=== PATIENT | female | born 1985 | race Caucasian/White ===

== ENCOUNTER 2021-04-17 22:59 | Emergency (ER) | payer SELFPAY ==
[~2021-04-17] VITALS: Ht 162.6 cm; Wt 95.0 kg
[2021-04-17] MEDS ORDERED: FAMOTIDINE 20 MG/2 ML VIAL IVP ONE (23:30)
[2021-04-17] MEDS ORDERED: diphenhydrAMINE 50 MG/ML VIAL IV ONE (23:30)
[2021-04-17] MEDS ORDERED: methylPREDNISolone SOD SUCC PF 125 MG/2 ML VIAL. IV ONE (23:30)
[2021-04-17] MEDS ORDERED: IV NORMAL SALINE 1000ML BAG 1,000 ML IV SCH (23:30)
--- NOTE | 2021-04-17 23:50 | PHYS DOC ---
General Adult EDM: Chief Complaint: ALLERGIC REACTION HPI: HPI: Patient is a 35-year-old female who presents to the emergency department today for an allergic reaction. Patient reports that she was upstairs working on the floor in the hospital when a friend brought out shrimp and she started to feel itchy and felt like her throat was swelling. This occurred 1 hour prior to arrival. Patient reports prior to checking in she did use her EpiPen on her. She reports that her throat swelling has improved but she still feels short of breath and her neck feels itchy. Patient denies fevers, nausea, vomiting. Review of Systems: Review of Systems: Constitutional: negative unless reported in HPI Eyes: negative unless reported in HPI HENT: negative unless reported in HPI Respiratory: negative unless reported in HPI Cardiovascular: negative unless reported in HPI GI: negative unless reported in HPI : negative unless reported in HPI Musculoskeletal: negative unless reported in HPI Integument: negative unless reported in HPI Neurologic: negative unless reported in HPI Endocrine: negative unless reported in HPI Lymphatic: negative unless reported in HPI Psychiatric: negative unless reported in HPI Heart Score: C/O Chest Pain: N/A Risk Factors: Risk Factors: DM, Current or recent (<one month) smoker, HTN, HLP, family history of CAD, obesity. Risk Scores: Score 0 - 3: 2.5% MACE over next 6 weeks - Discharge Home Score 4 - 6: 20.3% MACE over next 6 weeks - Admit for Clinical Observation Score 7 - 10: 72.7% MACE over next 6 weeks - Early Invasive Strategies Current Medications: Current Medications Medications (Trade) Dose Ordered Sig/Devan Start Time Stop Time Status Last Admin Dose Admin Diphenhydramine HCl (Benadryl) 25 mg 1X ONCE 04/17/21 23:30 04/17/21 23:31 UNV Famotidine (Pepcid Vial) 20 mg 1X ONCE 04/17/21 23:30 04/17/21 23:31 UNV Methylprednisolone Sodium Succinate (SOLU-Medrol 125MG VIAL) 125 mg 1X ONCE 04/17/21 23:30 04/17/21 23:31 UNV Sodium Chloride 1,000 ml @ 1,000 mls/hr Q1H 04/17/21 23:30 04/18/21 00:29 UNV Allergies: Allergies: Allergies Coded Allergies Type Severity Reaction Last Updated Verified acetaminophen Allergy Unknown HIVES 04/17/21 Yes codeine Allergy Unknown HIVES 04/17/21 Yes hydrocodone Allergy Unknown HIVES 04/17/21 Yes iodine Allergy Unknown EDEMA 04/17/21 Yes oxycodone Allergy Unknown HIVES 04/17/21 Yes shrimp Allergy Unknown Anaphylaxis 04/17/21 Yes tramadol Allergy Unknown EDEMA 04/17/21 Yes Physical Exam: PE: Constitutional: Well developed, well nourished, no acute distress, non-toxic appearance. [] HENT: Normocephalic, atraumatic, bilateral external ears normal, oropharynx moist, no oral exudates, no airway edema, no oropharyngeal erythema, uvula midline, no trismus, no phonation changes, nose normal. [] Eyes: PERRL, EOMI, conjunctiva normal, no discharge. [] Neck: Normal range of motion, no stridor Cardiovascular:Heart rate regular rhythm, no murmur [] Lungs & Thorax: Bilateral breath sounds clear to auscultation [] Abdomen: Bowel sounds normal, soft, no tenderness, no masses, no pulsatile masses. [] Skin: Warm, dry, erythema noted to patient's neck and chest Back: Normal range of motion Extremities: No tenderness, no cyanosis, no clubbing, ROM intact, no edema. [] Neurologic: Alert and oriented X 3, normal motor function, normal sensory function, no focal deficits noted. [] Psychologic: Affect normal, judgement normal, mood normal. [] EKG: EKG: [] Radiology/Procedures: Radiology/Procedures: [] Course & Med Decision Making: Course & Med Decision Making Pertinent Labs and Imaging studies reviewed. (See chart for details) [] Patient presents to the emergency department for an allergic reaction that started 1 hour prior to ER arrival. Patient reports shortness of breath and itching to her chest and neck. Patient did use her EpiPen prior to ER arrival. Patient was treated with Benadryl, Pepcid and Solu-Medrol and IV fluids. Patient was monitored in the emergency department for 2 hours following epinephrine administration. Following treatment in the emergency department, she does report improvement in her rash and she reports resolution in her shortness of breath and throat swelling. Rash has improved. Patient's lung sounds are clear, she has no stridor, no airway edema is noted. Patient advised to take Benadryl and Pepcid at home. She will be discharged home with a steroid. I discussed with patient all findings as well as the need to follow-up with PCP for further evaluation and treatment or return to the ER if any new or worsening symptoms. Strict return precautions were also discussed at length. Patient voiced understanding and agreement with the plan. Patient is hemodynamically stable at the time of disposition. Dragon Disclaimer: Dragon Disclaimer: This electronic medical record was generated, in whole or in part, using a voice recognition dictation system. Departure Departure Impression: Primary Impression: Allergic reaction Qualified Codes: T78.40XA - Allergy, unspecified, initial encounter Disposition: HOME / SELF CARE / HOMELESS Condition: GOOD Patient Instructions: Rash Additional Instructions: You were seen in the emergency department following an allergic reaction. You were treated in the emergency department with Benadryl, Pepcid and a steroid. I f your rash returns you can take Benadryl and 20 mg of Pepcid at home. You are being discharged home with a steroid to take. Please avoid your allergen. Please follow-up with your primary care provider within a week. Return to the emergency department if you develop rash, throat swelling or difficulty swallowing, shortness of breath, intractable nausea or vomiting, high fevers r efractory to treatment. Scripts Prednisone (PREDNISONE) 20 Mg Tablet 2 TAB PO DAILY for 5 Days, #10 TAB 0 Refills Prov: NIKKIE BALL APRN 04/18/21 NIKKIE BALL APRN Apr 17, 2021 23:49
[2021-04-18] MEDS ORDERED: PRED20TA PO (00:32)
[2021-04-18 00:55] VITALS: BP 106/49
== END 2021-04-18 01:01 | disposition home or self-care (01) ==
LOC: ER 22:59
DX: T78.40XA Allergy, unspecified, initial encounter (principal); Z88.5 Allergy status to narcotic agent; Z88.6 Allergy status to analgesic agent; Z88.8 Allergy status to other drugs, medicaments and biological substances; Z91.013 Allergy to seafood
CPT/HCPCS: 96361; 96374; 96375; 99285; J1200; J2930; J3490; J7030